=== PATIENT | female | born 1940 | race Caucasian/White ===

== ENCOUNTER 2025-06-19 13:24 | Outpatient (CLI) | payer MEDICARE, BC ==
--- NOTE | 2025-06-20 17:39 | CARDIOLOGY REPORT ---
APPROVED REPORT EXAM: Comprehensive 2D, Doppler, and color-flow Echocardiogram. Patient Location: OUT-PATIENT Blood Pressure: 172 / 72 mmHg Heart Rate: 72 bpm Rhythm: SINUS W/ BBB Indications DILATED CARDIOMYOPATHY ? PALPITATIONS Soil Technician: Ivan Antonio MD Previous echo: 07/31/22 CV SLK EF: 50-55%; smLV; nlRV; nlMV-trMR; nlAV-Milvia; nlLA; mTR; noPE 2D Dimensions RVDd 3.0 cm LVOT Diameter 2.00 (1.8-2.4cm) LA Volume 51 (18-58mL) M-Mode Dimensions Left Atrium(MM) 4.15 (2.5-4.0cm) IVSd 0.70 (0.7-1.1cm) LVDd 3.55 (4.0-5.6cm) Aortic Root 3.11 (2.2-3.7cm) PWd 0.78 (0.7-1.1cm) Aortic Cusp Exc 2.02 (1.5-2.0cm) IVSs 0.99 cm LVDs 2.30 (2.0-3.8cm) FS (%) 35 % PWs 1.31 cm ESV(Teich) 18.1 ml LVEF(%) 66 (>50%) Biplane 2D LA Volumes LA ESV A2C 50.58 mL/m2 LA ESV A4C 49.05 mL/m2 LA ESV Index 28.49 mL/m2 Aortic Valve AoV Peak Jhon. 145.7 cm/s AoV VTI 25.2 cm AO Peak GR. 8.4 mmHg AO Mean GR. 4 mmHg LVOT VTI 19.80 cm LVOT Peak Jhon. 105.4 cm/s SARATH (VMAX) 2.28 cm2 SARATH (VTI) 2.48 cm2 AI P 1/2 Time 399 ms AV DI 0.79 % Mitral Valve MV E Velocity 51.6 cm/s MV DECEL TIME 244 ms MV A Velocity 91.7 cm/s MV PHT 57 ms E/A Ratio 0.6 MVA (PHT) 3.85 cm2 TDI E/Medial E' 8.2 Pulmonary Valve PAEDP 9.36 mmHg Tricuspid Valve TR P. Velocity 265 cm/s RAP ESTIMATE 5 mmHg TR Peak Gr. 28 mmHg RVSP 33 mmHg Pulmonary Vein S2 Velocity 40.35 cm/s PVa Duration 134 msec LEFT VENTRICLE Small LV size with normal/hyperdynamic function. Mild concentric hypertrophy. LVEF is 70%. RIGHT VENTRICLE RV is normal size and function. ATRIA Left atrium is mildly dilated. AORTIC VALVE Trileaflet AV appears mildly sclerotic and calcified without stenosis. Trace insufficiency by color and spectral flow Doppler. MITRAL VALVE Mild MV annular calcification without stenosis. Mild regurgitation by color and spectral flow Doppler. TRICUSPID VALVE TV appears structurally normal with mild regurgitation by color and spectral flow Doppler. PULMONIC VALVE Normal PV without stenosis, physiologic insufficiency by color and spectral flow Doppler. GREAT VESSELS Aortic root is normal in size. Ascending aorta is normal in size. PERICARDIUM Normal pericardium. No effusion. Other Information Study Quality: Adequate Conclusion Small LV size with normal/hyperdynamic function. Mild concentric hypertrophy. LVEF is 70%. RV is normal size and function. Left atrium is mildly dilated. Trileaflet AV appears mildly sclerotic and calcified without stenosis. Trace insufficiency by color and spectral flow Doppler. Mild MV annular calcification without stenosis. Mild regurgitation by color and spectral flow Doppler. TV appears structurally normal with mild regurgitation by color and spectral flow Doppler. Normal pericardium. No effusion.
== END 2025-06-19 23:59 | disposition home or self-care (01) ==
LOC: CARD DIAG 13:24
PROVIDERS: ATTEND Nurse Practitioner Family
DX: I08.8 Other rheumatic multiple valve diseases (principal); I42.0 Dilated cardiomyopathy
CPT/HCPCS: 93306